=== PATIENT | female | born 1980 | race Caucasian/White ===

== ENCOUNTER 2020-11-01 02:29 | Emergency (ER) | payer OTHER ==
[~2020-11-01] VITALS: Ht 172.7 cm; Wt 154.4 kg
[2020-11-01 02:43] VITALS: TEMP 99.1
[2020-11-01 03:26] LABS: BASO % 0.3 % (0.0-2.0); EOS # 0.1 (0.0-0.7); EOS % 0.5 % (0-4.0); GRAN # 9.6 (1.4-6.5); GRAN % 75.8 % (42.2-75.2); HEMOGLOBIN 11.1 g/dl (12.5-16.0); LYMPH # 2.2 (1.2-3.4); MEAN CELL VOLUME 78 fl (80.0-100.0); MEAN CORPUSCULAR HEMOGLOBIN 24 pg (27.0-31.0); MEAN CORPUSCULAR HGB CONC 31 g/dl (33.0-37.0); MEAN PLATELET VOLUME 9.9 fl (7.4-10.4); MONO # 0.7 (0.1-0.6); MONO % 5.6 % (1.7-9.3); PLATELET COUNT 490 K/mm3 (130-400); REDCELL DISTRIBUTION WIDTH-CV 15.3 % (11.5-14.5)
[2020-11-01 03:27] LABS: HEMATOCRIT 35.7 % (37.0-47.0)
[2020-11-01 03:37] LABS: ALANINE AMINOTRANSFERASE 21 U/L (4-34); ALBUMIN 4.3 gm/dL (3.5-5.0); ALKALINE PHOSPHATASE 63 U/L (50-136); ANION GAP 10 mmol/L (7-16); AST,SGOT 22 U/L (15-37); BILIRUBIN,TOTAL 0.5 mg/dL (0.0-1.0); BLOOD UREA NITROGEN 12 mg/dL (7-17); CALCIUM 9.3 mg/dL (8.4-10.2); CARBON DIOXIDE 19 mmol/L (22-30); CHLORIDE 107 mmol/L (98-107); CREATININE, serum 0.81 (0.52-1.25); GLUCOSE 145 mg/dL (74-106); POTASSIUM 4.2 mmol/L (3.4-5.0); SODIUM 136 mmol/L (137-145); TOTAL PROTEIN 7.3 gm/dL (6.4-8.2)
[2020-11-01 03:51] LABS: TROPONIN-I < 0.012 ng/mL (0.000-0.035)
[2020-11-01 04:14] LABS: ARTERIAL BLD GAS O2 SATURATION 95.2 % (92-100); ARTERIAL BLD GAS TCO2 CT 19.8; ARTERIAL BLOOD GAS BASE EXCESS -4.3 (-2-2); ARTERIAL BLOOD GAS HCO3 18.9 meq/L (22-26); ARTERIAL BLOOD GAS PCO2 29.1 mmHg (35-45); ARTERIAL BLOOD GAS PO2 78.5 mmHg (80-100); ARTERIAL BLOOD GAS pH 7.43 (7.35-7.45)
[2020-11-01] MEDS ORDERED: DOXYCYCLINE 10100 MG PO (06:33)
[2020-11-01] MEDS ORDERED: PROVENTIL0.09 MG/A1 IH (06:33)
[2020-11-01] MEDS ORDERED: MEDROL 4MG DOSPA4 MG PO (06:33)
[2020-11-01 08:31] VITALS: BP 151/95; PULSE 108
== END 2020-11-01 08:31 | disposition home or self-care (01) ==
LOC: COL.ER 02:29
PROVIDERS: Family Medicine
DX: U07.1 COVID-19 (principal); Z88.0 Allergy status to penicillin
CPT/HCPCS: J1100; Q9967

== ENCOUNTER → 2020-11-21 | Outpatient (CLI) | payer SELFPAY ==
[~2020-11-21] MED LIST: DOXYCYCLINE 10100 MG PO; MEDROL 4MG DOSPA4 MG PO; PROVENTIL0.09 MG/A1 IH
== END ==
LOC: COL.RAD 09:10
DX: E87.70 Fluid overload, unspecified (principal)

== ENCOUNTER 2021-01-12 13:03 | Emergency (ER) | payer OTHER ==
[~2021-01-12] VITALS: Ht 172.7 cm; Wt 132.3 kg
[2021-01-12 14:15] LABS: BASO % 0.3 % (0.0-2.0); EOS # 0.1 (0.0-0.7); EOS % 0.7 % (0-4.0); GRAN # 8.7 (1.4-6.5); GRAN % 75.9 % (42.2-75.2); HEMOGLOBIN 11.3 g/dl (12.5-16.0); LYMPH # 1.8 (1.2-3.4); LYMPH % 16.1 % (20.0-51.0); MEAN CELL VOLUME 81 fl (80.0-100.0); MEAN CORPUSCULAR HEMOGLOBIN 25 pg (27.0-31.0); MEAN CORPUSCULAR HGB CONC 31 g/dl (33.0-37.0); MEAN PLATELET VOLUME 10.4 fl (7.4-10.4); MONO # 0.8 (0.1-0.6); MONO % 6.6 % (1.7-9.3); PLATELET COUNT 491 K/mm3 (130-400); RED BLOOD COUNT 4.55 M/mm3 (4.10-5.30); REDCELL DISTRIBUTION WIDTH-CV 18.9 % (11.5-14.5)
[2021-01-12 14:19] LABS: HEMATOCRIT 36.8 % (37.0-47.0)
[2021-01-12 14:38] LABS: ANION GAP 8 mmol/L (7-16); BLOOD UREA NITROGEN 15 mg/dL (7-17); CARBON DIOXIDE 22 mmol/L (22-30); CHLORIDE 107 mmol/L (98-107); CREATININE, serum 0.72 (0.52-1.25); GLUCOSE 131 mg/dL (74-106); POTASSIUM 4.2 mmol/L (3.4-5.0); SODIUM 137 mmol/L (137-145)
[2021-01-12 14:39] LABS: ALANINE AMINOTRANSFERASE 25 U/L (4-34); ALBUMIN 4.4 gm/dL (3.5-5.0); ALKALINE PHOSPHATASE 71 U/L (50-136); AST,SGOT 29 U/L (15-37); TOTAL PROTEIN 7.7 gm/dL (6.4-8.2)
[2021-01-12 15:40] LABS: SALICYLATE 1.4 mg/dL
[2021-01-12 16:12] LABS: ACETAMINOPHEN < 10 ug/mL (10-30)
[2021-01-12 16:38] LABS: ALCOHOL(ethanol),MEDICAL < 10 mg/dL
[2021-01-12 17:30] LABS: COLLECTION METHOD CLEAN CATCH
[2021-01-12 17:53] LABS: TRICYCLIC ANTIDEPRESS URINE NEGATIVE
[2021-01-12 18:07] LABS: PH 5 (5-8); URINE APPEARANCE Turbid; URINE BACTERIA Many /hpf; URINE BILIRUBIN Negative (NEGATIVE); URINE BLOOD Negative (NEGATIVE); URINE COLOR Yellow; URINE GLUCOSE Negative (NEGATIVE); URINE KETONE Negative (NEGATIVE); URINE LEUKOCYTE ESTERASE Negative (NEGATIVE); URINE NITRATE Negative (NEGATIVE); URINE PROTEIN(semi-quant) 2+ (NEGATIVE); URINE RBC None Seen /hpf; URINE UROBILINOGEN Negative (NEGATIVE)
[2021-01-12 21:55] VITALS: BP 137/97; PULSE 88; TEMP 98.1
== END 2021-01-12 21:55 ==
LOC: COL.ER 13:03
PROVIDERS: Physician Assistant
DX: F32.9 Major depressive disorder, single episode, unspecified (principal); F41.9 Anxiety disorder, unspecified; R45.851 Suicidal ideations; Z86.16 Personal history of COVID-19; Z20.822 Contact with and (suspected) exposure to COVID-19; Z88.0 Allergy status to penicillin